=== PATIENT | female | born 1940 | race Caucasian/White ===

== ENCOUNTER 2017-02-25 05:55 | Day surgery (SDC) | payer OTHER ==
[~2017-02-25] VITALS: Ht 149.9 cm; Wt 65.8 kg
[2017-02-25] MEDS ORDERED: FAMOTIDINE PF 20 MG/2 ML VIAL IVP ONE (08:00)
[2017-02-25] MEDS ORDERED: SEVOFLURANE 15 MIN GAS INH ONE (08:52)
[2017-02-25] MEDS ORDERED: PROPOFOL 200MG/ 20ML VIAL (DIPRIVAN) IV ONE (08:52)
[2017-02-25] MEDS ORDERED: DEXAMETHASONE SOD PHOSPHATE 4 MG/ML VIAL IVP ONE (08:52)
[2017-02-25] MEDS ORDERED: MIDAZOLAM HCL 5 MG/5 ML VIAL IVP ONE (08:52)
[2017-02-25] MEDS ORDERED: fentaNYL CITRATE/PF 100 MCG/2 ML AMP IVP ONE (08:52)
[2017-02-25] MEDS ORDERED: METOCLOPRAMIDE HCL 10 MG/2 ML VIAL IVP ONE (08:52)
[2017-02-25] MEDS ORDERED: LR 1,000 ML IV.SOLN IV ONE (08:52)
[2017-02-25] MEDS ORDERED: NS 1000 ML BAG IV ONE (08:52)
[2017-02-25] MEDS ORDERED: LR 1,000 ML IV ONE (09:51)
[2017-02-25] MEDS ORDERED: DIPHENHYDRAMINE INJ 50 MG/ML VIAL IVP PRN (10:00)
[2017-02-25] MEDS ORDERED: ePHEDrine sulfate 50 MG/ML VIAL IVP PRN (10:00)
[2017-02-25] MEDS ORDERED: IBUPROFEN 800 MG TABLET PO PRN (10:00)
[2017-02-25] MEDS ORDERED: ONDANSETRON HCL 4 MG/2 ML VIAL IVP PRN ×3 (10:00)
[2017-02-25] MEDS ORDERED: NALBUPHINE HCL 10 MG/ML AMP IVP PRN (10:00)
[2017-02-25] MEDS ORDERED: NALOXONE HCL 0.4 MG/ML AMP (NARCAN) IVP PRN (10:00)
[2017-02-25] MEDS ORDERED: OXYCODONE/ACETAMINOPHEN 5-325 TABLET PO PRN ×2 (10:00)
[2017-02-25] MEDS ORDERED: fentaNYL CITRATE/PF 100 MCG/2 ML AMP IVP PRN (10:00)
[2017-02-25] MEDS ORDERED: fentaNYL CITRATE/PF 100 MCG/2 ML AMP ONE (10:29)
[2017-02-25 11:22] VITALS: BP_SYST 132
== END 2017-02-25 13:00 | disposition home or self-care (01) ==
LOC: SMU 05:55 → SDS 05:55
PROVIDERS: ATTEND Obstetrics & Gynecology
DX: N84.0 Polyp of corpus uteri (principal); J20.9 Acute bronchitis, unspecified; F41.9 Anxiety disorder, unspecified; M25.50 Pain in unspecified joint; M25.551 Pain in right hip; M25.552 Pain in left hip; M11.262 Other chondrocalcinosis, left knee; K21.9 Gastro-esophageal reflux disease without esophagitis; I13.0 Hypertensive heart and chronic kidney disease with heart failure and stage 1 through stage 4 chronic kidney disease, or unspecified chronic kidney disease; N18.3 Chronic kidney disease, stage 3 (moderate); I50.9 Heart failure, unspecified; I21.3 ST elevation (STEMI) myocardial infarction of unspecified site; E78.5 Hyperlipidemia, unspecified; E03.9 Hypothyroidism, unspecified; Z87.891 Personal history of nicotine dependence; M54.5 Low back pain; F33.9 Major depressive disorder, recurrent, unspecified; M17.12 Unilateral primary osteoarthritis, left knee; M81.0 Age-related osteoporosis without current pathological fracture; R32 Unspecified urinary incontinence; N39.0 Urinary tract infection, site not specified; Z98.890 Other specified postprocedural states; I25.10 Atherosclerotic heart disease of native coronary artery without angina pectoris
CPT/HCPCS: 36415; 58558; 86886; 86900; 86901; 88305; J1100; J2250; J2704; J2765; J3010; J3490; J7030; J7120